=== PATIENT | male | born 1980 | race Caucasian/White ===

== ENCOUNTER → 2022-06-18 | Outpatient (CLI) | payer BC ==
--- NOTE | 2022-06-18 17:07 | CT ---
EXAMINATION TYPE: CT abdomen pelvis w con DATE OF EXAM: 06/18/2022 COMPARISON: NONE HISTORY: 42-year-old male R10.30, lower abd pain x3 weeks TECHNIQUE: Contiguous axial scanning of the abdomen and pelvis following administration of 100 ml Iso stanley 300 IV contrast. Coronal/sagittal reconstructions performed. CT DLP: 662.3 mGycm Automated exposure control for dose reduction was used. FINDINGS: Heart normal size without pericardial effusion. Lung bases without pleural effusion. There is a tiny hiatal hernia. Liver is mildly enlarged at 18.2 cm with diminished attenuation. No focal lesions seen. Portal venous system is patent. No biliary ductal dilatation. Gallbladder, adrenal glands, kidneys, spleen, and pancreas within normal limits. No dilated small bowel, free fluid, or free air. No mesenteric or retroperitoneal lymphadenopathy. Normal appendix. Scattered mild to moderate stool. No pericolonic inflammatory change. Bladder partially distended. Prostate gland mildly enlarged at 4.5 cm wide. Left-sided pelvic phlebol iths. No abnormal fluid collection in the pelvis or pelvic lymphadenopathy. Transitional lumbosacral segment with left L5 hemisacralization and a degenerative assimilation joint . No osseous destructive process. IMPRESSION: 1. MILD HEPATOMEGALY AT 18.2 CM WITH MODERATE HEPATIC STEATOSIS. 2. TINY HIATAL HERNIA. 3. SCATTERED MILD TO MODERATE STOOL. 4. MILD PROSTATOMEGALY AT 4.5 CM. 5. NORMAL APPENDIX. NO OTHER ACUTE INFLAMMATORY PROCESS IDENTIFIED TO EXPLAIN THE PATIENT'S SYMPTOMS.
== END | disposition home or self-care (01) ==
LOC: RADCTMAIN 14:10
PROVIDERS: ATTEND Family Medicine
DX: K76.0 Fatty (change of) liver, not elsewhere classified (principal); R16.0 Hepatomegaly, not elsewhere classified; N40.0 Benign prostatic hyperplasia without lower urinary tract symptoms
CPT/HCPCS: 74177; Q9967